=== PATIENT | male | born 1980 | race Caucasian/White ===

== ENCOUNTER → 2018-03-13 | Outpatient (CLI) | payer BC ==
[~2018-03-13] MED LIST: NORCO 325 MG-51 TAB PO
== END ==
LOC: COL.RAD 09:39
DX: N20.2 Calculus of kidney with calculus of ureter (principal); R11.2 Nausea with vomiting, unspecified; R50.9 Fever, unspecified

== ENCOUNTER 2018-03-14 14:03 | Day surgery (SDC) | payer BC ==
[~2018-03-14] VITALS: Ht 177.8 cm; Wt 61.7 kg
[2018-03-14 14:16] VITALS: BP 110/83; PULSE 86; TEMP 98
[2018-03-14 18:00] VITALS: BP 127/76; PULSE 64; TEMP 97.8
[2018-03-14 18:15] VITALS: BP 121/78; PULSE 64
[2018-03-14 18:30] VITALS: BP 138/86; PULSE 59
[2018-03-14 19:02] VITALS: BP 127/76; PULSE 70
== END 2018-03-14 19:30 | disposition home or self-care (01) ==
LOC: SDCO 14:03 → SURG 17:43 → SDCO 19:30
DX: N20.1 Calculus of ureter (principal); F17.210 Nicotine dependence, cigarettes, uncomplicated
CPT/HCPCS: OP; C1769; C2617; J0690; J1100; J2405; J2704; J3010; J7120

== ENCOUNTER 2018-03-21 07:18 | Day surgery (SDC) | payer BC ==
[~2018-03-21] VITALS: Ht 177.8 cm; Wt 59.7 kg
[2018-03-21 07:52] VITALS: BP 123/78; PULSE 91; TEMP 98.1
[2018-03-21 10:51] VITALS: TEMP 97.9
[2018-03-21 11:10] VITALS: BP 121/76; PULSE 72
[2018-03-21] MEDS ORDERED: SENOKOT S 50 MG1 TAB PO (11:22)
[2018-03-21] MEDS ORDERED: PYRIDIUM 100MG100 MG PO (11:23)
[2018-03-21 11:25] VITALS: BP 124/78; PULSE 62
[2018-03-21 11:45] VITALS: BP 131/92; PULSE 87
[2018-03-21 12:15] VITALS: BP 126/71; PULSE 78
== END 2018-03-21 12:30 | disposition home or self-care (01) ==
LOC: SDCO 07:18
DX: N20.1 Calculus of ureter (principal); F17.210 Nicotine dependence, cigarettes, uncomplicated
CPT/HCPCS: C1769; C2617; J0690; J1100; J1885; J2405; J2704; J3010; J7120

== ENCOUNTER 2020-11-22 17:39 | Emergency (ER) | payer BC ==
[~2020-11-22] VITALS: Ht 177.8 cm; Wt 63.6 kg
[~2020-11-22 17:39] MED LIST changes: +PYRIDIUM 100MG100 MG PO; +SENOKOT S 50 MG1 TAB PO
[2020-11-22 17:53] VITALS: TEMP 97.6
[2020-11-22 18:29] LABS: COLLECTION METHOD CLEAN CATCH
[2020-11-22 18:36] LABS: BASO # 0.1 (0.0-0.2); BASO % 0.5 % (0.0-2.0); EOS # 0.2 (0.0-0.7); EOS % 2.2 % (0-4.0); GRAN # 6.2 (1.4-6.5); GRAN % 64.5 % (42.2-75.2); HEMATOCRIT 40.9 % (42.0-52.0); HEMOGLOBIN 14.1 g/dl (13.5-18.0); LYMPH # 2.2 (1.2-3.4); LYMPH % 22.9 % (20.0-51.0); MEAN CELL VOLUME 93 fl (80.0-100.0); MEAN CORPUSCULAR HEMOGLOBIN 32 pg (27.0-31.0); MEAN CORPUSCULAR HGB CONC 35 g/dl (33.0-37.0); MONO # 0.9 (0.1-0.6); MONO % 9.7 % (1.7-9.3); PLATELET COUNT 263 K/mm3 (130-400); REDCELL DISTRIBUTION WIDTH-CV 11.9 % (11.5-14.5)
[2020-11-22 18:40] LABS: PH 5 (5-8); SQUAMOUS EPITHELIAL 0-2 /hpf; URINE APPEARANCE Clear; URINE BACTERIA None Seen /hpf; URINE BILIRUBIN Negative (NEGATIVE); URINE BLOOD Negative (NEGATIVE); URINE COLOR Straw; URINE GLUCOSE Negative (NEGATIVE); URINE KETONE Negative (NEGATIVE); URINE LEUKOCYTE ESTERASE Negative (NEGATIVE); URINE NITRATE Negative (NEGATIVE); URINE PROTEIN(semi-quant) Negative (NEGATIVE); URINE RBC 0-2 /hpf; URINE UROBILINOGEN Negative (NEGATIVE)
[2020-11-22 18:46] LABS: ALANINE AMINOTRANSFERASE 23 U/L (4-49); ALBUMIN 4.1 gm/dL (3.5-5.0); ALKALINE PHOSPHATASE 96 U/L (50-136); ANION GAP 10 mmol/L (7-16); AST,SGOT 30 U/L (15-37); BILIRUBIN,TOTAL 0.3 mg/dL (0.0-1.0); BLOOD UREA NITROGEN 16 mg/dL (9-20); CARBON DIOXIDE 26 mmol/L (22-30); CHLORIDE 104 mmol/L (98-107); CREATININE, serum 0.79 (0.66-1.25); GLUCOSE 95 mg/dL (74-106); POTASSIUM 3.3 mmol/L (3.4-5.0); SODIUM 140 mmol/L (137-145)
[2020-11-22 18:48] LABS: C-REACTIVE PROTEIN < 0.5 mg/dL (0.0-0.9)
[2020-11-22 21:17] VITALS: BP 124/85; PULSE 88
== END 2020-11-22 21:25 | disposition home or self-care (01) ==
LOC: COL.ER 17:39
PROVIDERS: Nurse Practitioner
DX: R10.9 Unspecified abdominal pain (principal); Z87.442 Personal history of urinary calculi
CPT/HCPCS: J1885; J2405; J7030; Q9967